=== PATIENT | male | born 1995 | race Caucasian/White ===

== ENCOUNTER → 2017-06-28 | Outpatient (CLI) | payer OTHER ==
[~2017-06-28] MED LIST: IBUP-1050 PO
--- NOTE | 2017-06-28 09:30 | DIAGNOSTIC IMAGING REPORT ---
CHEST 2 VIEWS ROUTINE CLINICAL HISTORY: 21 years-old Male presenting with BLOOD TINGED. TECHNIQUE: PA and lateral views of the chest were obtained. COMPARISON: 08/19/2015. FINDINGS: Cardiomediastinal silhouette normal. Lungs and pleural spaces clear. Osseous structures normal. Upper abdomen normal. IMPRESSION: 1. No acute cardiopulmonary disease. Electronically signed by: Del Collado M.D. 06/28/2017 9:29 AM Dictated Date/Time: 06/28/2017 9:28 AM
== END | disposition home or self-care (01) ==
LOC: C.RADBC 09:10
PROVIDERS: ATTEND Nurse Practitioner Adult Health
DX: R04.2 Hemoptysis (principal)

== ENCOUNTER → 2017-07-03 | Outpatient (CLI) | payer OTHER ==
[~2017-07-03] MED LIST changes: +OPTIRAY 320 IV PRN
--- NOTE | 2017-07-03 08:29 | DIAGNOSTIC IMAGING REPORT ---
(CHEST) THORAX WITH CT DOSE: 386.12 mGy.cm HISTORY: Hem[facility] R04.2 [facility] @ 8[facility]20am, arrive at 7:50am TECHNIQUE: Multiaxial CT images of the chest were performed following the intravenous administration of contrast. A dose lowering technique was utilized adhering to the principles of ALARA. COMPARISON: None. FINDINGS: The lungs are clear. The mediastinal vascular structures are within normal limits. No mediastinal or hilar lymphadenopathy. No pleural effusion or pneumothorax. Limited views of the upper abdomen demonstrate a normal liver and spleen. IMPRESSION: No significant abnormality identified within the chest. The above report was generated using voice recognition software. It may contain grammatical, syntax or spelling errors. Electronically signed by: Pato Sheikh M.D. 07/03/2017 8:27 AM Dictated Date/Time: 07/03/2017 8:21 AM
== END | disposition home or self-care (01) ==
LOC: C.CTS 08:05
PROVIDERS: ATTEND Nurse Practitioner Adult Health
DX: R04.2 Hemoptysis (principal)

== ENCOUNTER 2019-03-22 19:59 | Inpatient (IN) ==
[2019-03-22 21:02] LABS: Appearance Urine Turbid (Clear); Bacteria Urine Automated Negative (Negative); Bilirubin Urine Negative (Negative); Blood Urine Negative (Negative); Cast Urine Automated 0 /lpf (0-5); Color Urine Yellow; Epithelial Cell Urine Auto 0-5 /lpf (0-5); Glucose Urine UA Negative (Negative); Ketones Urine Trace (Negative); Leukocyte Esterase Urine Negative (Negative); Nitrite Urine Negative (Negative); Protein Urine Negative (Negative); RBC Urine Automated 0-4 /hpf (0-4); Specific Gravity Urine 1.027 (1.000-1.030); Urobilinogen Urine Negative (Negative); WBC Urine Automated 0 /hpf (0-5); pH Urine 7.5 (4.5-7.5)
[2019-03-22 21:20] LABS: Amphetamines+Metham, Urine Neg (Neg); Barbiturates, Urine Neg (Neg); Benzodiazepine, Urine Neg (Neg); Cocaine, Urine Neg (Neg); MDMA (Ecstacy), Urine Neg (Neg); Methadone, Urine Neg (Neg); Opiate, Urine Neg (Neg); Phencyclidine, Urine Neg (Neg)
[2019-03-22 21:32] LABS: Basophils # (auto) 0.02 K/uL (0-0.2); Basophils % (auto) 0.2 %; Eosinophils # (auto) 0.05 K/uL (0-0.5); Eosinophils % (auto) 0.6 %; Hemoglobin 17.8 g/dL (14.0-18.0); Immature Granulocytes # (auto) 0.02 K/uL (0.00-0.02); Immature Granulocytes % (auto) 0.2 %; Lymphocytes % (auto) 18.2 %; Mean Corpuscular Hemoglobin 32.4 pg (25-34); Mean Corpuscular Hgb Conc 34.9 g/dL (32-36); Mean Corpuscular Volume 92.7 fL (80-100); Mean Platelet Volume 9.3 fL (7.4-10.4); Monocytes # (auto) 0.51 K/uL (0.11-0.59); Monocytes % (auto) 5.8 %; Neutrophils # (auto) 6.59 K/uL (1.4-6.5); Platelet Count 307 K/uL (130-400); RDW Coefficient of Variation 12.6 % (11.5-14.5); RDW Standard Deviation 42.9 fL (36.4-46.3); White Blood Count 8.79 K/uL (4.8-10.8)
[2019-03-22 21:48] LABS: Albumin Level 4.3 gm/dl (3.4-5.0); BUN Creatinine Ratio 11.2 (10-20); Calcium 9.6 mg/dl (8.5-10.1); Creatinine Clr Calc Pharmacy 148.2 ml/min; Est GFR (African American) 115.7; Est GFR (Non-African American) 99.8; Potassium 3.9 mmol/L (3.5-5.1)
[2019-03-22 21:58] LABS: Albumin Globulin Ratio 1.1 (0.9-2); Bilirubin,Total 0.2 mg/dl (0.2-1); Globulin 3.9 gm/dl (2.5-4.0); Thyroid Stimulating Hormone 1.06 uIu/ml (0.300-4.500); Total Protein 8.2 gm/dl (6.4-8.2)
[2019-03-22 22:00] LABS: Acetaminophen < 2 ug/ml (10-30); Salicylate 4.7 mg/dl (2.8-20)
--- NOTE | 2019-03-22 22:39 | Emergency Department Note ---
Entered by Monica Jean-Baptiste acting as a scribe for Monica Mora DO History of Present Illness General Chief complaint: Mental Health Evaluation Stated complaint: DEPRESSED, SUICIDAL Time Seen by Provider: 03/22/19 20:24 Source: patient History of Present Illness Onset (ago): hour(s) (today) Location: head (mental health evaluation ) Pain Consistency: + constant Maximum Pain Intensity: 4 Associated symptoms: + other (SI) The patient is a 23 year old male with a PMHx pertinent for anxiety, depression, and other relevant medical problems indicated on Teliportme who presents to the Emergency Room for a mental health evaluation, The patient explains he had been experiencing ongoing depression and anxiety for about 2.5 years with SI at this time but no attempts to hurt himself. He states that he was prescribed Lexapro in June 2018 and had his dose increased to 30 mg 1 month ago but explains that he doesn't feel like it helps him anymore. Additionally he takes Hydroxyzine when needed to help him sleep. Today he presents to the ED today on his own with thoughts of suicide but no plan. He states that there were no triggers; "I just don't want to live anymore". He explains that his depression and anxiety are equally worsening right now. 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 He denies skipping doses of his medications, recreational drug use, mixing medications, cigarette smoking, and regular alcohol use. The patient offers no additional complaints at this time. Home Medications Home Medications Medication Instructions Recorded Confirmed Type escitalopram 20 mg tablet 30 mg PO DAILY #30 tab 10/28/18 03/22/19 History hydroxyzine HCl 10 mg PO HS PRN 03/22/19 03/22/19 History Allergies Allergy/AdvReac Type Severity Reaction Status Date / Time No Known Allergies Allergy Verified 03/22/19 20:25 Past Med/Surg History Medical History Chronic sinusitis Common migraine without aura Depression with anxiety Knee pain, right Left shoulder pain Strain of both wrists TMJ (sprain of temporomandibular joint) Tachycardia Family History Grandmother Breast cancer Mother Migraine headache Brother Migraine headache Social History Feels Safe at Home: Yes Smoking Status: Never smoker Review of Systems See HPI for pertinent positives & negatives. and A total of 10 systems reviewed and were otherwise negative Physical Exam Vital Signs Vital Signs - 24 hr 03/22/19 20:03 03/22/19 21:56 Temperature 37.4 C Temperature Source Oral Sepsis Recent Fever Within 48 Hours No Sepsis Action Taken by Nursing No Action Required Pulse Rate 109 H Pulse Rate [Right Finger] 78 Respiratory Rate 18 19 Respiratory Effort / Characteristics Non-Labored Non-Labored Respiratory Depth Normal Normal Blood Pressure 159/93 H Blood Pressure [Left Arm] 135/88 Blood Pressure Mean 115 Blood Pressure Mean [Left Arm] 103 Pulse Oximetry 98 98 Oxygen Delivery Method Room Air Room Air GENERAL: alert, well appearing, well nourished, no distress, non-toxic EYE EXAM: normal conjunctiva, PERRL and EOM's grossly intact OROPHARYNX: no exudate, no erythema, lips, buccal mucosa, and tongue normal and mucous membranes are moist NECK: supple, no nuchal rigidity, no adenopathy, non-tender LUNGS: Clear to auscultation. Normal chest wall mechanics, no w/r/r HEART: no murmurs, S1 normal and S2 normal ABDOMEN: abdomen soft, non-tender, normo-active bowel sounds, no masses, no rebound or guarding. BACK: Back is symmetrical on inspection and there is no deformity, no midline t enderness, no CVA tenderness. SKIN: no rashes and no bruising UPPER EXTREMITIES: upper extremities are grossly normal. FROM, nml pulses b/l. LOWER EXTREMITIES: No pitting edema. FROM, nml pulses b/l. NEURO EXAM: Normal sensorium, cranial nerves II-XII grossly intact, normal speech, no gross weakness of arms, no gross weakness of legs. Gross sensation intact. Course 2037: Past medical records reviewed. The patient was evaluated in room A06. A complete history and physical exam was performed. 2134: The patient was evaluated by psych telehealth case manager and referred to [facility] who will accept him for inpatient treatment. 201 signed. Administered Medications Hydroxyzine HCl (Vistaril) 25 mg PO Q4H PRN PRN Reason: Anxiety Stop: 04/21/19 22:56 Last Admin: 03/23/19 00:25 Dose: 25 mg Documented by: [id number] Medical Decision Making Differential Diagnosis Differential diagnosis includes but is not limited to etiologies such as mood disorder, infection, hypoglycemia, electrolyte abnormalities, cardiac sources, intracerebral event, toxicologic, neurologic, as well as others were entertained. Medical Records Attestation: I reviewed the patient's medical records. Home Medications Current Medication List: was personally reviewed by me Laboratory Data Attestation: I reviewed the patient's lab results. Result diagrams: 03/22/19 21:18 03/22/19 21:18 Lab Results 03/22/19 03/22/19 03/22/19 Range/Units 20:14 20:14 21:18 WBC 8.79 (4.8-10.8) K/uL RBC 5.50 (4.7-6.1) M/uL Hgb 17.8 (14.0-18.0) g/dL Hct 51.0 (42-52) % MCV 92.7 (80-100) fL MCH 32.4 (25-34) pg MCHC 34.9 (32-36) g/dL RDW Std Deviation 42.9 (36.4-46.3) fL RDW Coeff of [place] 12.6 (11.5-14.5) % Plt Count 307 (130-400) K/uL MPV 9.3 (7.4-10.4) fL Immature Gran % (Auto) 0.2 % Neut % (Auto) 75.0 % Lymph % (Auto) 18.2 % [place] % (Auto) 5.8 % Eos % (Auto) 0.6 % Baso % (Auto) 0.2 % Immature Gran # (Auto) 0.02 (0.00-0.02) K/uL Neut # (Auto) 6.59 H (1.4-6.5) K/uL Lymph # (Auto) 1.60 (1.2-3.4) K/uL [place] # (Auto) 0.51 (0.11-0.59) K/uL Eos # (Auto) 0.05 (0-0.5) K/uL Baso # (Auto) 0.02 (0-0.2) K/uL Sodium (136-145) mmol/L Potassium (3.5-5.1) mmol/L Chloride (98-107) mmol/L Carbon Dioxide (21-32) mmol/L Anion Gap (3-11) BUN (7-18) mg/dl Creatinine (0.6-1.4) mg/dl Est Cr Clr Drug Dosing ml/min Est GFR ( Amer) Est GFR (Non-Af Amer) BUN/Creatinine Ratio (10-20) Glucose (70-99) mg/dl Calcium (8.5-10.1) mg/dl Total Bilirubin (0.2-1) mg/dl AST (15-37) U/L ALT (12-78) U/L Alkaline Phosphatase (45-117) U/L Total Protein (6.4-8.2) gm/dl Albumin (3.4-5.0) gm/dl Globulin (2.5-4.0) gm/dl Albumin/Globulin Ratio (0.9-2) TSH (0.300-4.500) uIu/ml Urine Color Yellow Urine Appearance Turbid A (Clear) Urine pH 7.5 (4.5-7.5) Ur Specific [place] 1.027 (1.000-1.030) Urine Protein Negative (Negative) Urine Glucose (UA) Negative (Negative) Urine Ketones Trace H (Negative) Urine Blood Negative (Negative) Urine Nitrite Negative (Negative) Urine Bilirubin Negative (Negative) Urine Urobilinogen Negative (Negative) Ur Leukocyte Esterase Negative (Negative) Urine WBC (Auto) 0 (0-5) /hpf Urine RBC (Auto) 0-4 (0-4) /hpf U Hyaline Cast (Auto) 0 (0-5) /lpf U Epithel Cells (Auto) 0-5 (0-5) /lpf Urine Bacteria (Auto) Negative (Negative) Salicylates (2.8-20) mg/dl Urine Opiates Screen Neg (Neg) Ur Methadone, Qual Neg (Neg) Acetaminophen (10-30) ug/ml Urine Barbiturates Neg (Neg) Ur Phencyclidine (PCP) Neg (Neg) U Amphetamin/Meth Scrn Neg (Neg) MDMA (Ecstasy) Screen Neg (Neg) U Benzodiazepines Scrn Neg (Neg) Ur Cocaine Metabolite Neg (Neg) U Marijuana (THC) Screen Neg (Neg) Ethyl Alcohol mg/dL (0-3) mg/dl 03/22/19 03/22/19 03/22/19 Range/Units 21:18 21:18 21:18 WBC (4.8-10.8) K/uL RBC (4.7-6.1) M/uL Hgb (14.0-18.0) g/dL Hct (42-52) % MCV (80-100) fL MCH (25-34) pg MCHC (32-36) g/dL RDW Std Deviation (36.4-46.3) fL RDW Coeff of [place] (11.5-14.5) % Plt Count (130-400) K/uL MPV (7.4-10.4) fL Immature Gran % (Auto) % Neut % (Auto) % Lymph % (Auto) % [place] % (Auto) % Eos % (Auto) % Baso % (Auto) % Immature Gran # (Auto) (0.00-0.02) K/uL Neut # (Auto) (1.4-6.5) K/uL Lymph # (Auto) (1.2-3.4) K/uL [place] # (Auto) (0.11-0.59) K/uL Eos # (Auto) (0-0.5) K/uL Baso # (Auto) (0-0.2) K/uL Sodium 138 (136-145) mmol/L Potassium 3.9 (3.5-5.1) mmol/L Chloride 106 (98-107) mmol/L Carbon Dioxide 25 (21-32) mmol/L Anion Gap 7.0 (3-11) BUN 12 (7-18) mg/dl Creatinine 1.06 (0.6-1.4) mg/dl Est Cr Clr Drug Dosing 148.2 ml/min Est GFR ( Amer) 115.7 Est GFR (Non-Af Amer) 99.8 BUN/Creatinine Ratio 11.2 (10-20) Glucose 100 H (70-99) mg/dl Calcium 9.6 (8.5-10.1) mg/dl Total Bilirubin 0.2 (0.2-1) mg/dl AST 27 (15-37) U/L ALT 22 (12-78) U/L Alkaline Phosphatase 77 (45-117) U/L Total Protein 8.2 (6.4-8.2) gm/dl Albumin 4.3 (3.4-5.0) gm/dl Globulin 3.9 (2.5-4.0) gm/dl Albumin/Globulin Ratio 1.1 (0.9-2) TSH 1.060 (0.300-4.500) uIu/ml Urine Color Urine Appearance (Clear) Urine pH (4.5-7.5) Ur Specific [place] (1.000-1.030) Urine Protein (Negative) Urine Glucose (UA) (Negative) Urine Ketones (Negative) Urine Blood (Negative) Urine Nitrite (Negative) Urine Bilirubin (Negative) Urine Urobilinogen (Negative) Ur Leukocyte Esterase (Negative) Urine WBC (Auto) (0-5) /hpf Urine RBC (Auto) (0-4) /hpf U Hyaline Cast (Auto) (0-5) /lpf U Epithel Cells (Auto) (0-5) /lpf Urine Bacteria (Auto) (Negative) Salicylates 4.7 (2.8-20) mg/dl Urine Opiates Screen (Neg) Ur Methadone, Qual (Neg) Acetaminophen < 2 L (10-30) ug/ml Urine Barbiturates (Neg) Ur Phencyclidine (PCP) (Neg) U Amphetamin/Meth Scrn (Neg) MDMA (Ecstasy) Screen (Neg) U Benzodiazepines Scrn (Neg) Ur Cocaine Metabolite (Neg) U Marijuana (THC) Screen (Neg) Ethyl Alcohol mg/dL < 3.0 (0-3) mg/dl Blood Pressure Blood Pressure Findings: Elevated blood pressure Blood Pressure Disposition: Referred to patients primary care provider JAVON Narrative Patient well-appearing, here with worsening anxiety and depression and passive SI. No prior attempts. Patient seen and evaluated by psychiatric telehealth case manager and referred to [facility] Patient in agreement with voluntary inpatient treatment. Patient calm and cooperative while in the emergency room. I do not suspect occult infection or other toxicologic syndrome. Impression & Plan Anxiety, Depression Discharge Plan Visit Data *Final* Discharge Date/Time: 03/22/19 23:40 Chief Complaint: Mental Health Evaluation Stated Complaint: DEPRESSED, SUICIDAL ED Provider: Monica Mora Discharge Problem: Anxiety, Depression Patient Disposition: Admitted As Inpatient Discharge Instructions Interventions: ED Discharge Assessment Last Done: 03/22/19 23:40 Discharge Problem: Depression Qualifiers: Depression Type: unspecified Qualified Code(s): F32.9 - Major depressive disorder, single episode, unspecified The scribe's documentation has been prepared under my direction and personally reviewed by me in its entirety. I confirm that the note above accurately reflects all work, treatment, procedures, and medical decision making performed by me.
[2019-03-22] MEDS ORDERED: BISMUTH SUBSALICYLATE PER ML OMNICELL CHARGE PO PRN (22:57)
[2019-03-22] MEDS ORDERED: MAGNESIUM HYDROXIDE SUSP 30 ML UDC PO PRN (22:57)
[2019-03-22] MEDS ORDERED: ALUMINUM/MAGNESIUM SUSP 30 ML UDC PO PRN (22:57)
[2019-03-22] MEDS ORDERED: ACETAMINOPHEN 325 MG TAB PO PRN (22:57)
[2019-03-22] MEDS ORDERED: SODIUM CHLORIDE 0.65% NA SOLN 45 ML (OCEAN) PRN (22:57)
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
[2019-03-23] MEDS ORDERED: ESCITALOPRAM OXALATE 20 MG TAB PO ONE (12:00)
[2019-03-23] MEDS ORDERED: SERTRALINE HCL 50 MG TABLET PO ONE (12:00)
[2019-03-23] MEDS ORDERED: ACETAMINOPHEN 500 MG TAB PO PRN (12:05)
[2019-03-23] MEDS ORDERED: ASPIRIN 325 MG ECTAB PO PRN (12:05)
[2019-03-24] MEDS: SERTRALINE HCL 50 MG TABLET PO SCH (08:46)
[2019-03-24] MEDS: ESCITALOPRAM OXALATE 20 MG TAB PO SCH (08:46)
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
[2019-03-25] MEDS: ESCITALOPRAM OXALATE 20 MG TAB PO SCH (07:58)
[2019-03-25] MEDS: SERTRALINE HCL 50 MG TABLET PO SCH (07:59)
--- NOTE | 2019-03-25 12:44 | Psychiatric Progress Note ---
Date of Service March 25, 2019 Impression / Recommendations (1) Depression: 03/23 - Reviewed diagnoses and treatment recommendations, including trial of a different SSRI - discussed risks, benefits and side effects of sertraline, and he agreed to a trial. Cross taper: decrease escitalopram to 20mg daily, 2 days, then 10mg daily x 2 days, then stop. Start sertraline 25mg daily, increase to 50mg daily tomorrow, and titrate as tolerated. - Care coordinated with outpatient clinicians at [facility]. - Increase hydroxyzine to 100mg HS for sleep, and consider trail of trazodone if ineffective. - Encourage group attendance and participation. Work on healthy coping skills and discharge safety plan. - Family meeting with parents. 03/24 - Continue cross-titration as above, tolerating medication adjustments - Encourage ongoing participation in group and recreational programming - Family meeting with parents scheduled for tomorrow morning 03/25 - Escitalopram discontinued per ordered taper; titrating sertraline to 100mg starting tomorrow morning - Family meeting with parents held today, parents are supportive - Continue to encourage participation in group programming - Encourage ongoing work on development of a safety plan (2) Anxiety: 03/23 - DAKSHA with panic - switch SSRIs above, and continue hydroxyzine prn. - Work on behavioral techniques for managing anxiety. - Encourage him to minimize caffeine due to risk of exacerbating anxiety and insomnia. 03/24 - Continue as above (3) Common migraine without aura: 03/23 - Excedrin migraine nonformulary, will order acetaminophen and aspirin as needed. Risk Factors Assessment Male: Yes : Yes Do You Have Access To A Gun?: No (has guns, but they are at parents' house) Health Problems: Yes Mental Health Diagnoses: Yes Substance Use Disorders: No Previous Attempt: No Family History of Suicide: No Previous Psychiatric Hospitalization: No Hopelessness: Yes Smoker: No Protective Factors Assessment Denominational Beliefs: No : No Responsible for Young Children: No Employed: No Stable Relationships: No Supportive Family: Yes Good Rapport with Provider: Yes Interval History Identifying Information ERIC PEACOCK is a 23-year-old M who currently lives in [place], has a history of recurrent depression and generalized anxiety disorder for which he sees a nurse practitioner and therapist at [facility], and was admitted on 03/22/19 22:57 on a 201 voluntary commitment for worsening mood and suicidal ideation in the context of school stress. Chief Complaint "Good. I had my meeting this morning." Review of Systems Notes Constitutional: reports difficulty falling asleep last evening Cardiovascular: denied Respiratory: denied Gastrointestinal: denied Neurological: denied Psychiatric: denies symptoms other than stated above Total of at least 10 systems reviewed, pertinent positives as above and in HPI. Sleep Information Total Hours of Sleep: 7.25 Sleep Comments: pt on q-15 minute checks Meal Information Percent Meal Consumed - Breakfast: 100 Percent Meal Consumed - Lunch: 100 Percent Meal Consumed - Dinner: 100 Subjective Subjective Patient was seen & assessed and interval progress reviewed with treatment team. Staff reports the patient has a meeting scheduled for this morning with his parents. Otherwise, he has reportedly been tolerating medication changes, and is participating appropriately in group programming. Patient was seen today to assess progress since admission. He states that he participated in a meeting with his parents, which went well. He admits that he was "anxious" prior to the meeting and was pleasantly surprised with the outcome. Patient states that he was expecting his parents to be upset about him "wasting money" by not doing well in school. He states "the reaction was not in line with that, which was surprising to me." He admits that his parents are supportive, and that they were able to discuss how they could be involved in his safety plan moving forward. Patient states they decided to share a common scheduled on "[employer]", in which patient plans to put in his assignments dates and cross them off when completed. Patient states "so that when my parents know whether or not I am getting things done, and can check in with me if I am not." He states that his mother was happy to see that his medications were being adjusted, as she has felt the escitalopram was not having sustained benefits. Patient denies any significant concerns related to his medication adjustments. He admits to ongoing poor sleep, and did receive hydroxyzine 50 mg last evening. He states that it was not overly effective, and is agreeable to receiving 100 mg if needed tonight. We reviewed medication changes, and patient was willing to titrate sertraline to 100 mg tomorrow morning. Escitalopram was scheduled to be discontinued as part of ordered taper. Risks and benefits of these changes were reviewed, along with black box warning for potential suicidality in child and adolescent age range. Patient verbalized understanding and was agreeable with making these adjustments. Patient denies suicidal ideation at this time, and is noticing some improvements in his mood. He denies other needs or concerns presently. Physical Exam Psychiatric Orientation: alert, oriented x 3 and cooperative (Shotty, but pleasant) Apperance: appropriately dressed, appropriately groomed and appeared stated age Eye Contact: good eye contact Motor Behavior: steady gait and station and no abnormal motor movements Speech: normal rate/rhythm/volume of speech (Monotone) Affect: + depressed affect (Improving slowly over the course of admission) and mood congruent with affect Mood: + anxious mood ("Feeling a little anxious, but not bad") Thought Process: goal directed thought process, clear/coherent thought process and thought association intact Thought Content: reality based without delusions; no hopelessness and no worthlessness Suicidal Thoughts: denies suicidal thoughts, denies suicidal plan and denies suicidal intent Homicidal Thoughts: denies homicidal thoughts Hallucinations: no auditory hallucinations and no visual hallucinations Cognition: attention grossly intact and language grossly intact Insight: + fair insight Judgement: + fair judgement Vital Signs (Past 24 Hours) Last Vital Signs Temp 36.4 C L 03/25/19 07:05 Pulse 90 03/25/19 07:06 Resp 18 03/25/19 07:05 BP 132/80 03/25/19 07:06 Pulse Ox 100 03/22/19 23:40 Results & Data Current Inpatient Medications Current Inpatient Medications: Current Inpatient Medications Acetaminophen (Tylenol) 650 mg PO Q4H PRN PRN Reason: Headache or Minor Fever Stop: 04/21/19 22:56 Al Hydrox/Mg Hydrox/Simethicone (Maalox) 30 ml PO Q4H PRN PRN Reason: GI Upset Stop: 04/21/19 22:56 Aspirin (Ecotrin) 325 mg PO Q4H PRN PRN Reason: headache Stop: 04/22/19 12:14 Bismuth Subsalicylate (Kaopectate) 15 ml PO PRN PRN PRN Reason: Loose Stool Stop: 04/21/19 22:56 Hydroxyzine HCl (Vistaril) 25 mg PO Q4H PRN PRN Reason: Anxiety Stop: 04/21/19 22:56 Last Admin: 03/23/19 00:25 Dose: 25 mg Documented by: Hydroxyzine HCl (Vistaril) 50 mg PO HSZ PRN PRN Reason: Insomnia Stop: 04/21/19 22:56 Last Admin: 03/24/19 21:07 Dose: 50 mg Documented by: Magnesium Hydroxide (Milk Of Magnesia) 30 ml PO DAILY PRN PRN Reason: Constipation Stop: 04/21/19 22:56 Sertraline HCl (Zoloft) 50 mg PO QAM JOYCE Stop: 04/23/19 08:59 Last Admin: 03/25/19 07:59 Dose: 50 mg Documented by: Sodium Chloride ([place] Nasal) 1 - 2 sprays NA PRN PRN PRN Reason: Nasal Dryness/Congestion Stop: 04/21/19 22:56 Mental Health & Subst Abuse Tx Psychiatrist Name of Psychiatrist: Donovan Bustillos Date of Appointment with Psychiatrist: 04/02/19 Time of Appointment with Psychiatrist: 10:20am Therapist Name of Therapist: Donovan Freeman Date of Therapist Appointment: 04/02/19 Time of Therapist Appointment: 11am Cage Maker Machine Name of Cage Maker Machine: None Post Discharge Appointments Primary Care Physician Name Of Family Doctor: [facility] - Dr Shakila Rich (1) Depression Depression Type: unspecified Qualified Code(s): F32.9 - Major depressive disorder, single episode, unspecified
[2019-03-26] MEDS ORDERED: SERTRALINE HCL 100 MG TABLET PO SCH (09:00)
--- NOTE | 2019-03-26 09:46 | Discharge Summary ---
Date of Service March 26, 2019 History of Present Illness Information obtained from the medical record, the patient, and outpatient records from [facility]. He started seeing Robin Freeman for therapy in December 2018, and SEGUN Lau, in February 2019. He has been diagnosed with recurrent depression and generalized anxiety disorder, and had been on escitalopram 20 mg daily since the spring, which initially helped, but symptoms worsened at the end of summer. He reported struggling with anxiety since he was young, and depression off and on since eighth grade. He was struggling in school (attending [employer]), not attending classes or turning in assignments, often playing video games instead of doing school work. His parents were upset about the amount of money he was spending on video games. He reported a strained relationship with his brother, stating he was fearful of him due to frequent arguments, and that they used to fight physically. He denied PTSD symptoms, and reported poor medication compliance, missing doses several times a week. He reported a history of panic attacks, which resolved after starting SSRIs. At his initial assessment in February, his escitalopram was increased to 30 mg daily. He was seen for follow-up 02/26/2019, and reported improved homework completion, but ongoing anxiety with excessive worry and disrupted sleep, and hydroxyzine 10-20 mg at bedtime was started. Histrionic traits were also noted. Although he denied alcohol intake on presentation to the hospital, and his initial outpatient evaluation, he reported drinking 2-4 times a month, 3-4 drinks in a sitting, as well as up to 6 energy drinks a day plus caffeine pills. He presented to the ER 03/22/2019 reporting worsening mood and anxiety as well as suicidal thoughts that had developed over the past few days. Although he denied a specific plan, he did not feel safe leaving the hospital. He endorsed poor motivation, low energy, fatigue, hopelessness, increasing anxiety, social isolation, and difficulty getting out of bed. He said he felt like giving up, noting that he was in his second year at [employer], but failed a class and may have to repeat the year. He reported multiple stressors including relationship issues, academics, finances, and family relationships. He denied substance use, psychosis, and medical problems. Last night, he requested and received hydroxyzine 25 mg, as well as a white noise machine to help with sleep. On my assessment, he states he came to the ER as he was feeling worse and feared he would try to end his life. He states he lives on a 6th floor and "the easiest thing would just be to go out the window." He reports multiple stressors including school as above, just found out he failed one of his classes a few days ago. States he has not been been going to classes or doing homework, instead spending time in bed or on the couch watching TV and eating. States mood has been up and down for years with repeated episodes of depression, but had never taken medication until this past spring. Mood has been "pretty low" for months, cannot recall a time when he felt good. Sleep is chronically poor, since 8th grade, with difficulty falling asleep, sometimes taking up to 2 hours. Estimates he's getting 4-6 hours of sleep a night, but up to 8 hours on days he doesn't have to get up for school. Notes he eats more when mood is low, and reports 20-30lb weight gain over the past year. Does not exercise or get regular physical activity, and reports feelings of guilt, crying spells over the past couple of weeks, low energy, and hopelessness. Reports panic with acute onset of heart racing, chest tightness, sweating, feeling "paranoid," often occurring when worrying, lasting about 20 minutes. Estimates 3 in the past month, prior to that had not had any. Alleviated by talking to someone. Describes himself as a worrier, which is life long but has worsened over the last few years. Interferes with sleep, increased muscle tension/headaches, and feels on edge. Notes he had discontinuation symptoms when missed doses of escitalopram in the past, with "brain zaps." Moved out of parents' house a couple of months ago as didn't want to be around half brother Harjit who is 31 and still lives at home, states they just ignore each other now when they see each other. Notes parents are paying "for everything," including school and his apartment, "as an incentive to do well in school." States they are aware of his struggles and are supportive. Denies any history of manic or hypomanic symptoms, PTSD (other than intrusive thoughts of past fights with half brother, one in particular from 2014), and O CD. Reports a couple episodes of thinking he saw a spider, but there was nothing there, which occurred when he was sleep deprived. Once saw a "giant spider" in the corner of the room, which he knew wasn't real. Denies paranoia. Physical Exam Psychiatric Orientation: alert, oriented x 3 and cooperative (And pleasant) Apperance: appropriately dressed, appropriately groomed and appeared stated age Eye Contact: good eye contact Motor Behavior: steady gait and station and no abnormal motor movements Speech: normal rate/rhythm/volume of speech Affect: + blunted affect (Appearing subdued, but not overtly depressed) Mood: + anxious mood ("Just a little nervous about discharge"); no depressed mood ("Pretty good") Thought Process: goal directed thought process, clear/coherent thought process and thought association intact Thought Content: reality based without delusions; no hopelessness and no worthlessness Suicidal Thoughts: denies suicidal thoughts, denies suicidal plan and denies suicidal intent Homicidal Thoughts: denies homicidal thoughts Hallucinations: no auditory hallucinations and no visual hallucinations Cognition: attention grossly intact and language grossly intact Insight: good insight Judgement: good judgement Vital Signs (Past 24 Hours) Last Vital Signs Temp 36.3 C L 03/26/19 06:44 Pulse 77 03/26/19 06:45 Resp 18 03/26/19 06:44 BP 119/81 03/26/19 06:45 Pulse Ox 100 03/22/19 23:40 Principal Diagnosis - Major depressive disorder - Generalized anxiety disorder, with panic attacks Psychiatric Data 23-year-old male admitted voluntarily for inpatient psychiatric treatment after presenting to the ED with complaints of worsening mood and anxiety. He had reported suicidal thoughts developing for several days prior to admission. Although he denied having a specific plan, he was unable to contract for safety. Patient reports multiple stressors, including academic difficulty, financial stress, relationship concerns, and stressors within his family situation. He admitted that he had failed a class at [employer], it is concerned he may have to repeat the year. Patient was cooperative with admission process, and after review of medication options was agreeable to cross titration from escitalopram to sertraline. Over the course of the patient's admission, he was titrated from 30 mg of escitalopram to 100 mg of sertraline. Patient was agreeable to being discharged on a dose of 100 mg of sertraline each morning. Patient received hydroxyzine as needed for sleep, which was titrated to 100 mg at bedtime. This was only minimally effective; however, patient was requesting to continue it at discharge. During the patient's admission, he participated appropriately in group and recreational programming. He was engaged with social workers and developing an aftercare plan, and communicated with his parents regularly. Patient was agreeable to a family meeting involving his parents in order to discuss academic stress and difficult family dynamics. Patient completed a safety plan prior to discharge, which was personally reviewed by this provider. He reported improvement in mood, and resolution of suicidal ideation. Patient was future oriented and conversation, stating he is planning to increase communication with his parents and is hoping to have a meeting with his implementation advisor to discuss his school progress. Patient is able at this time to contract for safety outside of the hospital setting. Discharge plan was reviewed with the patient, who verbalized understanding and is agreeable with returning home today. Based on review of patient's case and their current presentation, risk of harm to self or others is no longer perceived to be acute. Management of symptoms on an outpatient basis seems the most appropriate and least restrictive setting. Pt seems appropriate for discharge with recommendation for consistent follow-up with outpatient psychiatric prescriber and therapist. Pt verbalized understanding of discharge plan reviewed and is agreeable with plan to be discharged home today. Day of Discharge Assessment Patient's case was reviewed and discussed with nursing and social work. Staff reports the patient has demonstrated improvement in mood, appearing brighter and more interactive in groups. He is requesting discharge, with hopes to return to classes soon. Patient was seen today to assess readiness for discharge. He states that he is feeling "pretty good" today, but admits that he is "a little nervous about discharge." Patient states that he slept decently last evening, but it still took some time before he was able to fall asleep. He verbalizes "vivid dreams" but states they were not disruptive to his sleep. Patient is requesting to continue hydroxyzine at 100 mg at discharge, but states he may request adjustments with his outpatient provider. Patient denies significant side effects related to cross titration from escitalopram to sertraline. This morning, he received 100 mg of sertraline and will continue on this dose until outpatient follow-up. Patient states that he spoke with his parents again recently, and they decided to schedule a meeting with his implementation advisor. He states that his close friend has communicated with his professors, who are all encouraging he focus on his mental health and take the time that he needs. Patient states he is coping to return to classes tomorrow; however, is planning to work with his advisor to discuss making up any missed work. Patient has been denying suicidal ideation for the past several days, and is able to contract for safety outside of the hospital. Patient is requesting discharge at this time. Discharge medications were reviewed and patient denies having questions about this process. Patient is agreeable with discharge to home today. ROS: Constitutional: reports difficulty falling asleep last evening Cardiovascular: denied Respiratory: denied Gastrointestinal: denied Neurological: denied Psychiatric: denies symptoms other than stated above Total of at least 10 systems reviewed, pertinent positives as above and in HPI. Transition of Care Transition Of Care Record: was reviewed with the patient Advance Directives Advance Directives Information Provided: Yes Advance Directives: No Mental Health Advance Directive: No Advance Directives on File: No Living Will: No Power of Tray Line Supervisor: No Advance Directives Reason:: Declines as Mental Health Visit. Risk Factors Assessment Presenting risk factors reviewed on discharge. Precipitating stressors mitigated by: admission for inpatient psychiatric observation and treatment, appropriate adjustments to medications to target symptoms, attendance of therapeutic treatment groups, development of healthy and effective coping strategies, involvement of outpatient supports, completion of a safety plan, confirmation of guns and weapons being secured at parent's home, and education on diagnoses. Pt has demonstrated improvement in condition with regard to improvement in mood, resolution of SI, involvement of parents and treatment plan and aftercare, and rescheduling outpatient appointments to allow for timely follow-up after hospital discharge. At this time, patient is requesting discharge and is no longer considered to be at acute risk of harm to himself or others. Pt will be discharged with recommendation for ongoing outpatient psychiatric treatment. Male: Yes : Yes Do You Have Access To A Gun?: No (has guns, but they are at parents' house) Health Problems: Yes Mental Health Diagnoses: Yes Substance Use Disorders: No Previous Attempt: No Family History of Suicide: No Previous Psychiatric Hospitalization: No Hopelessness: Yes Smoker: No Protective Factors Assessment Islam Beliefs: No : No Responsible for Young Children: No Employed: No Stable Relationships: No Supportive Family: Yes Good Rapport with Provider: Yes Tobacco Cessation at Discharge Tobacco Cessation Medication Prescribed at Discharge: Not Applicable/Non-Smoker Total Time Total Time Spent: Greater Than 30 Minutes Total Time Includes: Examination of the patient, Discharge Planning, Medication Reconciliation and Communication with other providers Discharge Data Lab Results 03/22/19 03/22/19 03/22/19 20:14 20:14 21:18 WBC 8.79 RBC 5.50 Hgb 17.8 Hct 51.0 MCV 92.7 MCH 32.4 MCHC 34.9 RDW Std Deviation 42.9 RDW Coeff of Celeste 12.6 Plt Count 307 MPV 9.3 Immature Gran % (Auto) 0.2 Neut % (Auto) 75.0 Lymph % (Auto) 18.2 [place] % (Auto) 5.8 Eos % (Auto) 0.6 Baso % (Auto) 0.2 Immature Gran # (Auto) 0.02 Neut # (Auto) 6.59 H Lymph # (Auto) 1.60 Hudson # (Auto) 0.51 Eos # (Auto) 0.05 Baso # (Auto) 0.02 Sodium Potassium Chloride Carbon Dioxide Anion Gap BUN Creatinine Est Cr Clr Drug Dosing Est GFR ( Amer) Est GFR (Non-Af Amer) BUN/Creatinine Ratio Glucose Calcium Total Bilirubin AST ALT Alkaline Phosphatase Total Protein Albumin Globulin Albumin/Globulin Ratio TSH Urine Color Yellow Urine Appearance Turbid A Urine pH 7.5 Ur Specific [place] 1.027 Urine Protein Negative Urine Glucose (UA) Negative Urine Ketones Trace H Urine Blood Negative Urine Nitrite Negative Urine Bilirubin Negative Urine Urobilinogen Negative Ur Leukocyte Esterase Negative Urine WBC (Auto) 0 Urine RBC (Auto) 0-4 U Hyaline Cast (Auto) 0 U Epithel Cells (Auto) 0-5 Urine Bacteria (Auto) Negative Salicylates Urine Opiates Screen Neg Ur Methadone, Qual Neg Acetaminophen Urine Barbiturates Neg Ur Phencyclidine (PCP) Neg U Amphetamin/Meth Scrn Neg MDMA (Ecstasy) Screen Neg U Benzodiazepines Scrn Neg Ur Cocaine Metabolite Neg U Marijuana (THC) Screen Neg Ethyl Alcohol mg/dL 03/22/19 03/22/19 03/22/19 21:18 21:18 21:18 WBC RBC Hgb Hct MCV MCH MCHC RDW Std Deviation RDW Coeff of [place] Plt Count MPV Immature Gran % (Auto) Neut % (Auto) Lymph % (Auto) [place] % (Auto) Eos % (Auto) Baso % (Auto) Immature Gran # (Auto) Neut # (Auto) Lymph # (Auto) [place] # (Auto) Eos # (Auto) Baso # (Auto) Sodium 138 Potassium 3.9 Chloride 106 Carbon Dioxide 25 Anion Gap 7.0 BUN 12 Creatinine 1.06 Est Cr Clr Drug Dosing 148.2 Est GFR ( Amer) 115.7 Est GFR (Non-Af Amer) 99.8 BUN/Creatinine Ratio 11.2 Glucose 100 H Calcium 9.6 Total Bilirubin 0.2 AST 27 ALT 22 Alkaline Phosphatase 77 Total Protein 8.2 Albumin 4.3 Globulin 3.9 Albumin/Globulin Ratio 1.1 TSH 1.060 Urine Color Urine Appearance Urine pH Ur Specific [place] Urine Protein Urine Glucose (UA) Urine Ketones Urine Blood Urine Nitrite Urine Bilirubin Urine Urobilinogen Ur Leukocyte Esterase Urine WBC (Auto) Urine RBC (Auto) U Hyaline Cast (Auto) U Epithel Cells (Auto) Urine Bacteria (Auto) Salicylates 4.7 Urine Opiates Screen Ur Methadone, Qual Acetaminophen < 2 L Urine Barbiturates Ur Phencyclidine (PCP) U Amphetamin/Meth Scrn MDMA (Ecstasy) Screen U Benzodiazepines Scrn Ur Cocaine Metabolite U Marijuana (THC) Screen Ethyl Alcohol mg/dL < 3.0 Hospital Course (1) Depression: 03/23 - Reviewed diagnoses and treatment recommendations, including trial of a different SSRI - discussed risks, benefits and side effects of sertraline, and he agreed to a trial. Cross taper: decrease escitalopram to 20mg daily, 2 days, then 10mg daily x 2 days, then stop. Start sertraline 25mg daily, increase to 50mg daily tomorrow, and titrate as tolerated. - Care coordinated with outpatient clinicians at [facility]. - Increase hydroxyzine to 100mg HS for sleep, and consider trail of trazodone if ineffective. - Encourage group attendance and participation. Work on healthy coping skills and discharge safety plan. - Family meeting with parents. 03/24 - Continue cross-titration as above, tolerating medication adjustments - Encourage ongoing participation in group and recreational programming - Family meeting with parents scheduled for tomorrow morning 03/25 - Escitalopram discontinued per ordered taper; titrating sertraline to 100mg starting tomorrow morning - Family meeting with parents held today, parents are supportive - Continue to encourage participation in group programming - Encourage ongoing work on development of a safety plan (2) Anxiety: 03/23 - DAKSHA with panic - switch SSRIs above, and continue hydroxyzine prn. - Work on behavioral techniques for managing anxiety. - Encourage him to minimize caffeine due to risk of exacerbating anxiety and insomnia. 03/24 - Continue as above (3) Common migraine without aura: 03/23 - Excedrin migraine nonformulary, will order acetaminophen and aspirin as needed. Mental Health & Subst Abuse Tx Psychiatrist Name of Psychiatrist: Donovan Bustillos Date of Appointment with Psychiatrist: 04/02/19 Time of Appointment with Psychiatrist: 10:20am Therapist Name of Therapist: Donovan Freeman Date of Therapist Appointment: 04/02/19 Time of Therapist Appointment: 11am Director Pharmacology Name of Director Pharmacology: None Post Discharge Appointments Primary Care Physician Name Of Family Doctor: [facility] - Dr Shakila Rich Smoking Cessation Counseling Tobacco Cessation Medication Prescribed at Discharge: Not Applicable/Non-Smoker Discharge Plan Discharge Items Patient Disposition: Home - Self-Care Reason For Visit: DEPRESSION, SI Discharge Diagnosis: Depression Condition on Discharge: Good Activity: Resume your previous activity Non-emergency contact: Primary Care Provider, Psychiatrist and Therapist Call non-emergency contact if: you have any medication questions and your symptoms worsen Follow-up/Referrals: PCP,NO [Primary Care Provider] - Diet: Regular Addtl Attending Provider Instructions: SPECIAL CARE INSTRUCTIONS: 1. Follow through with your scheduled aftercare appointments. If unable to keep an appointment, please call to reschedule. 2. Take your medication only as prescribed. Medication should not be changed or stopped without the approval of your doctor. In the event of worsening symptoms or concerns about side effects, contact your doctor immediately. 3. Utilize new healthy coping skills, anger management skills, and stress management skills learned during your hospitalization. Journal feelings and process them with a support person. Identify stressors or situations that may result in relapse, deterioration or inappropriate behaviors and develop a plan to deal with those issues. 4. If your coping skills are ineffective and you are in crisis, contact your outpatient providers for direction. If unable to reach your providers, please call the [employer] HELP LINE AT or go to the closest Emergency Room. 5. Avoid alcohol and un-prescribed drugs. 6. You have been provided with the Mental Health Advance Directives Pamphlet for your review. AFTERCARE APPOINTMENTS: * Please call your insurance company prior to your scheduled appointment to confirm your aftercare providers are covered. Take your insurance information to your appointments. WHO TO CALL AND WHEN: Medical Emergencies: For questions or emergencies related to your hospital stay, please contact the Inpatient Behavioral Health Unit at [phone]. A asbestos coverer is on-call 03/12 for the Behavioral Health Unit for emergencies At any time you feel your situation is an emergency, you may also call 911 immediately. Your Discharge Instructions noted above were prepared by provider Sonam Gomez PA-C. Pending Studies at Discharge: No Stand-Alone Forms: My [facility], Smoking Cessation, Suicide Prevention Resources Medications and DC Order Prescriptions: New sertraline 100 mg Tablet 100 mg PO QAM 30 Days Qty: 30 RF: 0 hydroxyzine HCl 50 mg tablet 100 mg PO HSZ PRN (Reason: insomnia) 30 Days Qty: 60 RF: 0 Discontinued escitalopram oxalate 20 mg tablet 30 mg PO DAILY Qty: 30 RF: 0 hydroxyzine HCl 10 mg tablet 10 mg PO HS PRN (Reason: Sleep) RF: 0 Discharge Orders: Discharge Order (Routine); Ordered 03/26/19 Ordered By: Sonam Gomez Admission Data Admit Date/Time: 03/22/19 22:57 Attending Provider: Shaniqua Dye Admit Provider: Kimberly Bautista Primary Care Provider: PCP,NO Other Interventions: PSY Interdisciplinary Discharge Planning Last Done: 03/23/19 16:16 Coding Level of Care Code 23731 D/C day mgmt > 30 min Diagnoses Depression F32.9 Depression Type: unspecified Anxiety F41.9 Common migraine without aura G43.009
== END 2019-03-26 11:37 | disposition home or self-care (01) | DRG 881 ==
LOC: ED 19:59 → 3S 22:57